=== PATIENT | female | born 1965 | race Caucasian/White ===

== ENCOUNTER 2019-07-28 15:59 | Emergency (ER) | payer MEDICAID ==
[2019-07-28] MEDS: CEPHALEXIN 500 MG CAP PO (18:55)
[2019-07-28] MEDS: PHENAZOPYRIDINE 100 MG TAB PO (18:55)
== END 2019-07-28 19:08 | disposition home or self-care (01) ==
LOC: FTE 15:59
DX: R30.0 Dysuria (principal)
CPT/HCPCS: 81003; 81025; 99283